=== PATIENT | female | born 1950 | race Hispanic/Latino ===

== ENCOUNTER → 2017-09-14 | Outpatient (CLI) | payer OTHER, MEDICARE ==
[~2017-09-14] MED LIST: ASPI-1181 PO; CALC-1115 PO; CHOL200074 PO; HYDR25TA PO; LORA10TA7 PO; LOSA100T29 PO; METO50TA18 PO; SIMV40TA5 PO
== END | disposition home or self-care (01) ==
LOC: RAH 10:57
PROVIDERS: ATTEND Internal Medicine
DX: Z12.31 Encounter for screening mammogram for malignant neoplasm of breast (principal)
CPT/HCPCS: 77067

== ENCOUNTER → 2018-02-09 | Outpatient (CLI) | payer OTHER, MEDICARE ==
[~2018-02-09] MED LIST changes: +LOSA100T20 PO; -LOSA100T29 PO
== END | disposition home or self-care (01) ==
LOC: RAH 11:53
PROVIDERS: ATTEND Internal Medicine
DX: M51.37 Other intervertebral disc degeneration, lumbosacral region (principal); M41.86 Other forms of scoliosis, lumbar region; M48.07 Spinal stenosis, lumbosacral region; I10 Essential (primary) hypertension; E78.5 Hyperlipidemia, unspecified; K21.9 Gastro-esophageal reflux disease without esophagitis; I25.10 Atherosclerotic heart disease of native coronary artery without angina pectoris; Z90.710 Acquired absence of both cervix and uterus
CPT/HCPCS: 72100

== ENCOUNTER → 2018-06-26 | Outpatient (CLI) | payer OTHER, MEDICARE ==
[~2018-06-26] MED LIST changes: -LOSA100T20 PO; +LOSA100T58 PO
== END | disposition home or self-care (01) ==
LOC: RAH 12:55
PROVIDERS: ATTEND Internal Medicine
DX: M47.816 Spondylosis without myelopathy or radiculopathy, lumbar region (principal)
CPT/HCPCS: 72100

== ENCOUNTER → 2018-06-27 | Outpatient (CLI) | payer OTHER, MEDICARE | END | disposition home or self-care (01) | LOC: RAH 07:34 | PROVIDERS: ATTEND Internal Medicine Cardiovascular Disease | DX: I51.7 Cardiomegaly (principal); M47.814 Spondylosis without myelopathy or radiculopathy, thoracic region; I70.0 Atherosclerosis of aorta | CPT/HCPCS: 71250 ==

== ENCOUNTER → 2018-10-06 | Outpatient (CLI) | payer OTHER, MEDICARE ==
[~2018-10-06] MED LIST changes: -CALC-1115 PO; +CALC-1205 PO
== END | disposition home or self-care (01) ==
LOC: RAH 11:49
PROVIDERS: ATTEND Internal Medicine
DX: Z12.31 Encounter for screening mammogram for malignant neoplasm of breast (principal)
CPT/HCPCS: 77067

== ENCOUNTER 2019-07-26 15:36 | Emergency (ER) | payer MEDICARE ==
[~2019-07-26 15:36] MED LIST changes: +SIMV-46 PO; -SIMV40TA5 PO
[2019-07-26] MEDS ORDERED: ACETAMINOPHEN EXTRA STRENGTH 500 MG TABLET ONE (15:59)
[2019-07-26] MEDS ORDERED: ONDANSETRON ODT 4 MG TAB ONE (16:16)
== END 2019-07-26 16:56 | disposition home or self-care (01) ==
LOC: EDH 15:36
DX: M65.842 Other synovitis and tenosynovitis, left hand (principal); I10 Essential (primary) hypertension; E78.5 Hyperlipidemia, unspecified
CPT/HCPCS: 29125

== ENCOUNTER 2021-02-12 11:21 | Emergency (ER) | payer OTHER, MEDICARE ==
[~2021-02-12] VITALS: Ht 160 cm; Wt 81.6 kg
[~2021-02-12 11:21] MED LIST changes: -ASPI-1181 PO; +ASPI-1443 PO
[2021-02-12 14:11] LABS: APPEARANCE,URINE Clear (CLEAR); BILIRUBIN,URINE Negative (NEGATIVE); COLOR,URINE Yellow (YELLOW); GLUCOSE, URINE (UA) Negative (NEGATIVE); KETONES,URINE Negative (NEGATIVE); LEUKOCYTE ESTERASE ,URINE Negative (NEGATIVE); NITRATE,URINE Negative (NEGATIVE); OCCULT BLOOD,URINE Negative (NEGATIVE); PROTEIN,URINE Negative (NEGATIVE); UROBILINOGEN,URINE 0.2 mg/dL (0.2-1.0)
[2021-02-12 14:34] LABS: HEMATOCRIT 46.8 % (36-48); MEAN CORPUSCULAR HGB CONC 33.3 g/dL (32.0-36.0); PLATELET COUNT (AUTO) 174 K/uL (130-400); RED CELL DISTRIBUTION WIDTH 12.9 % (11.0-15.5); WHITE BLOOD COUNT (AUTO) 6.1 K/uL (4.8-10.8)
[2021-02-12 14:57] LABS: ALBUMIN 3.7 g/dL (3.5-5.0); BILIRUBIN,TOTAL 0.4 mg/dL (0.2-1.0); POTASSIUM 4.9 mmol/L (3.5-5.1); TOTAL PROTEIN, SERUM 7.4 g/dL (6.0-8.3)
[2021-02-12 15:20] LABS: BAND NEUTROPHILS % (MANUAL) 5 % (0-2); EOSINOPHILS % (MANUAL) 5 % (1-6); LYMPHOCYTES % (MANUAL) 15 % (22-44); MAN.DIFF COMMENT-IMPRESSION MANUAL DIFFERENTIAL; MONOCYTES % (MANUAL) 5 % (2-9); REACTIVE LYMPHOCYTES 8 % (0-0); SEGMENTED NEUTROPHILS % 62 % (40-70)
[2021-02-12 15:21] LABS: PLATELET MORPHOLOGY COMMENT LARGE PLTS PRESENT
[2021-02-12 17:24] VITALS: BP 146/67
== END 2021-02-12 17:15 | disposition home or self-care (01) ==
LOC: EDH 11:21
DX: I10 Essential (primary) hypertension (principal); E78.00 Pure hypercholesterolemia, unspecified; M19.90 Unspecified osteoarthritis, unspecified site; Z79.82 Long term (current) use of aspirin; Z79.899 Other long term (current) drug therapy; Z98.890 Other specified postprocedural states
CPT/HCPCS: 36415; 80053; 81003; 85025; 93005

== ENCOUNTER → 2023-12-29 | Outpatient (CLI) | payer OTHER, MEDICARE ==
[~2023-12-29] MED LIST changes: -LOSA100T58 PO; +LOSA100T59 PO
== END | disposition home or self-care (01) ==
LOC: RAH 07:46
PROVIDERS: ATTEND Family Medicine
DX: N63.11 Unspecified lump in the right breast, upper outer quadrant (principal); N63.41 Unspecified lump in right breast, subareolar; N64.89 Other specified disorders of breast; R92.333 Mammographic heterogeneous density, bilateral breasts; N64.53 Retraction of nipple
CPT/HCPCS: 76641; 77066